=== PATIENT | female | born 1970 ===

== ENCOUNTER 2017-05-22 22:32 | Emergency (ER) | payer OTHER ==
[2017-05-22 22:49] VITALS: BMI 36.0
[2017-05-22 23:01] VITALS: TEMP 98.7
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
[2017-05-23 00:14] VITALS: BP 142/81; PULSE 84; RESP 20
[2017-05-23 00:16] VITALS: O2SAT 97
== END 2017-05-23 00:04 | disposition home or self-care (01) ==
LOC: C.ER 22:32
DX: S13.4XXA Sprain of ligaments of cervical spine, initial encounter (principal); V49.9XXA Car occupant (driver) (passenger) injured in unspecified traffic accident, initial encounter; I10 Essential (primary) hypertension